=== PATIENT | female | born 1980 | race Two or more races ===

== ENCOUNTER 2017-02-02 10:04 | Emergency (ER) | payer MEDICAID ==
[2017-02-02] MEDS ORDERED: NO HOME MEDICATION XX (11:39)
[2017-02-02] MEDS ORDERED: ULTRAM50 M1 PO (12:12)
== END 2017-02-02 12:25 ==
LOC: EDMED 10:04
DX: M54.9 Dorsalgia, unspecified (principal); G89.29 Other chronic pain; F17.210 Nicotine dependence, cigarettes, uncomplicated; Z90.49 Acquired absence of other specified parts of digestive tract; Z98.890 Other specified postprocedural states; F17.200 Nicotine dependence, unspecified, uncomplicated